=== PATIENT | male | born 1995 | race Caucasian/White ===

== ENCOUNTER 2018-01-14 15:05 | Emergency (ER) | payer BC ==
[~2018-01-14] VITALS: Ht 175.3 cm; Wt 88.6 kg
[2018-01-14 15:14] VITALS: BP 150/71; PULSE 72; TEMP 98.3
[2018-01-14] MEDS ORDERED: PREDNISONE20 MG PO (16:24)
[2018-01-14] MEDS ORDERED: FLEXERIL 1010 MG/TAB PO (16:24)
== END 2018-01-14 16:32 | disposition home or self-care (01) ==
LOC: COL.ER 15:05
DX: M54.6 Pain in thoracic spine (principal); F17.210 Nicotine dependence, cigarettes, uncomplicated
CPT/HCPCS: J1885; J2360